=== PATIENT | male | born 1995 | race Caucasian/White ===

== ENCOUNTER 2016-10-27 01:57 | Emergency (ER) | payer SELFPAY ==
[2016-10-27 02:15] VITALS: BP 139/100
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
== END 2016-10-27 03:00 | disposition home or self-care (01) ==
LOC: JD.ED 01:57
DX: S61.012A Laceration without foreign body of left thumb without damage to nail, initial encounter (principal); F17.210 Nicotine dependence, cigarettes, uncomplicated; W01.10XA Fall on same level from slipping, tripping and stumbling with subsequent striking against unspecified object, initial encounter; Z88.6 Allergy status to analgesic agent
CPT/HCPCS: 99282; 99283

== ENCOUNTER 2017-06-07 04:44 | Emergency (ER) | payer SELFPAY ==
[2017-06-07 04:52] VITALS: BP 133/83
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
== END 2017-06-07 05:50 | disposition home or self-care (01) ==
LOC: JD.ED 04:44
DX: S61.215A Laceration without foreign body of left ring finger without damage to nail, initial encounter (principal); S03.40XA Sprain of jaw, unspecified side, initial encounter; S00.81XA Abrasion of other part of head, initial encounter; S60.811A Abrasion of right wrist, initial encounter; S50.812A Abrasion of left forearm, initial encounter; S30.811A Abrasion of abdominal wall, initial encounter; Y04.0XXA Assault by unarmed brawl or fight, initial encounter; F17.210 Nicotine dependence, cigarettes, uncomplicated
CPT/HCPCS: 12001; 99283-25; 99284-25